=== PATIENT | male | born 1945 | race Caucasian/White ===

== ENCOUNTER 2018-07-14 19:13 | Inpatient (IN) | payer OTHER ==
[~2018-07-14] VITALS: Ht 175.3 cm; Wt 64.6 kg
[2018-07-14 19:18] VITALS: Ht 175.3 cm; Wt 64.6 kg
[2018-07-14 20:38] LABS: BASOPHIL % 0.3 % (0-2); PLATELET COUNT 222 x10^3mcL (130-400)
[2018-07-14 20:40] LABS: microscopic required? YES; urine erythrocyte TRACE (NEGATIVE)
[2018-07-14 20:45] LABS: RED CELL DISTRIBUTION WIDTH 15.9 % (11.5-14.5)
[2018-07-14 20:55] LABS: CALCIUM 8.6 mg/dL (8.5-10.1); CARBON DIOXIDE 30.9 mmol/L (21-32); CREATININE SERUM 1.4 mg/dL (0.7-1.3); POTASSIUM SERUM 4.5 mmol/L (3.5-5.1)
[2018-07-14 20:58] LABS: ovalocyte/elliptocyte 1+; rbc morphology (normal/abnorm) ABNORMAL (NORMAL)
[2018-07-14 21:07] LABS: ALBUMIN 3.6 g/dL (3.4-5.0); BILIRUBIN TOTAL 0.35 mg/dL (0.20-1.00); MAGNESIUM 2.1 mg/dL (1.8-2.4); PHOSPHOROUS 2.4 mg/dL (2.5-4.9); TOTAL PROTEIN, SERUM 7.4 g/dL (6.4-8.2)
[2018-07-15 01:04] VITALS: BP 159/88
[2018-07-15 05:59] VITALS: BP 103/71
[2018-07-15 06:43] LABS: BASOPHIL % 0.6 % (0-2); PLATELET COUNT 191 x10^3mcL (130-400)
[2018-07-15 06:44] LABS: RED CELL DISTRIBUTION WIDTH 15.9 % (11.5-14.5)
[2018-07-15 07:11] LABS: ALBUMIN 3.4 g/dL (3.4-5.0); ALKALINE PHOSPHATASE 82 U/L (46-116); ALT/SGPT 22 U/L (16-63); AST/SGOT 19 U/L (15-37); BILIRUBIN TOTAL 0.6 mg/dL (0.20-1.00); CALCIUM 8.9 mg/dL (8.5-10.1); CARBON DIOXIDE 26.6 mmol/L (21-32); CHLORIDE SERUM 104 mmol/L (98-107); CREATININE SERUM 1.2 mg/dL (0.7-1.3); GFR1 > 60 mL/min; GLUCOSE SERUM 103 mg/dL (74-106); SODIUM SERUM 137 mmol/L (136-145); TOTAL PROTEIN, SERUM 6.9 g/dL (6.4-8.2)
[2018-07-15 09:15] VITALS: BP 113/70
[2018-07-15 16:49] VITALS: BP 136/84
[2018-07-15 21:42] VITALS: BP 115/78
[2018-07-15 22:02] VITALS: BP 115/78
[2018-07-16 05:07] VITALS: BP 100/66
[2018-07-16 08:25] VITALS: BP 107/66
[2018-07-16] MEDS ORDERED: TYL325 PO (09:59)
[2018-07-16] MEDS ORDERED: FLO4 PO (09:59)
[2018-07-16] MEDS ORDERED: PROS5 PO (09:59)
[2018-07-16 12:29] VITALS: BP 117/70
[2018-07-16 13:15] VITALS: BP 117/70
[2018-07-16 16:00] VITALS: BP 122/74
== END 2018-07-16 20:39 | DRG 552 ==
LOC: ED 19:13 → MU 22:15
PROVIDERS: Emergency Medicine; Internal Medicine Nephrology; ADMIT Internal Medicine Pulmonary Disease
DX: M48.00 Spinal stenosis, site unspecified (principal); I10 Essential (primary) hypertension; N40.1 Benign prostatic hyperplasia with lower urinary tract symptoms; R33.8 Other retention of urine
CPT/HCPCS: 97112-GP; 97116-GP; 97530-GP; Q0092

== ENCOUNTER 2018-09-21 16:53 | Emergency (ER) | payer OTHER ==
[~2018-09-21] VITALS: Ht 175.3 cm; Wt 63.5 kg
[~2018-09-21 16:53] MED LIST: FLO4 PO; PROS5 PO; TYL325 PO
[2018-09-21 17:43] LABS: BASOPHIL % 0.6 % (0-2); PLATELET COUNT 279 x10^3mcL (130-400)
[2018-09-21 17:45] LABS: RED CELL DISTRIBUTION WIDTH 15.9 % (11.5-14.5)
[2018-09-21 18:22] LABS: ALBUMIN 4.2 g/dL (3.4-5.0); ALKALINE PHOSPHATASE 91 U/L (46-116); ALT/SGPT 23 U/L (16-63); AST/SGOT 20 U/L (15-37); BILIRUBIN TOTAL 0.4 mg/dL (0.20-1.00); CALCIUM 9.4 mg/dL (8.5-10.1); CARBON DIOXIDE 27.5 mmol/L (21-32); CREATININE SERUM 0.9 mg/dL (0.7-1.3); GLUCOSE SERUM 104 mg/dL (74-106)
[2018-09-21 18:24] LABS: TOTAL PROTEIN, SERUM 8.3 g/dL (6.4-8.2)
[2018-09-21 18:33] LABS: microscopic required? YES; urine erythrocyte 2+ (NEGATIVE)
[2018-09-21 18:47] LABS: CHLORIDE SERUM 102 mmol/L (98-107); POTASSIUM SERUM 3.7 mmol/L (3.5-5.1); SODIUM SERUM 139 mmol/L (136-145)
[2018-09-21 22:49] VITALS: BP 141/82
== END 2018-09-21 22:45 | disposition short-term general hospital (02) ==
LOC: ED 16:53
PROVIDERS: Emergency Medicine
DX: M62.81 Muscle weakness (generalized) (principal); M54.5 Low back pain; I10 Essential (primary) hypertension; Z98.890 Other specified postprocedural states
CPT/HCPCS: J7030